=== PATIENT | female | born 1935 | race Caucasian/White ===

== ENCOUNTER 2022-03-23 08:07 | Outpatient (CLI) | payer MEDICARE, BC, SELFPAY | END 2022-03-23 08:08 | disposition home or self-care (01) | LOC: INJ CL 08:11 | PROVIDERS: PCP Family Medicine; Visit Provider Family Medicine | DX: M54.16 Radiculopathy, lumbar region (principal); M51.36 Other intervertebral disc degeneration, lumbar region | CPT/HCPCS: 64483; J1100; Q9966 ==

== ENCOUNTER 2022-05-07 09:03 | Outpatient (CLI) | payer MEDICARE, BC, SELFPAY ==
--- NOTE | 2022-05-07 09:15 | MR_ITS ---
[address] [address] Phone:?[phone] Fax:?[phone] Referring Physician Information: Christopher Garcia M.D. [address] [facility] [address] Phone:?[phone] Fax:?[phone] Patient:Shannon Khan D.O.B:?1935 Sex:?Female Phone:?[phone] [facility] MRN:?[id number] Exam Date:?05/07/2022 ? EXAM: MR LUMBAR SPINE WITHOUT CONTRAST 1.5T CLINICAL INFORMATION: Low back pain. Lumbar radiculopathy. No injury. TECHNICAL INFORMATION: T1, T2 and STIR sagittal sections through the lumbar spine with T1 coronal sections, T1 and T2 FSE stacked axial sections and T2 FSE angled axial sections through L5-S1. COMPARISON IMAGES: MRI dated 05/31/2021. INTERPRETATION:?Segmentation and Alignment: 5 lumbar type vertebrae with lumbar hyperlordosis and a mild upper lumbar curve to the left. Osseous structures: A subacute vertical stress fracture is seen within the left sacral ala with marrow edema seen on sagittal STIR image 17. A moderate 40% compression fracture is seen within the superior T12 vertebral body with a linear area of residual increased signal intensity adjacent to the compressed T12 endplate. An old marked 80% compression fracture is visualized at L5. No involvement of posterior elements. No osteolytic or destructive bone lesion. Sacrum and Sacroiliac joints:?Normal sacrum and sacroiliac joints. L5-S1: Mild disc degeneration with chronic bilateral L5 spondylolysis, a 4 mm spondylolisthesis, moderately severe right and severe left up-down foraminal stenosis and bilateral L5 neural impingement. L4-5: Spondylosis with mild left facet arthropathy and mild narrowing of the left neural foramen. L3-4: Moderate disc degeneration with a high signal intensity right lateral annular fissure and 3 mm right lateral disc protrusion. Normal facet joints. No stenosis or impingement. L2-3: Moderate disc degeneration with a high signal intensity dorsal annular fissure/bulge, normal facet joints and no stenosis or impingement. L1-2: Moderate to advanced disc degeneration with mild retrolisthesis, a high signal intensity dorsal annular fissure/bulge, normal facet joints and no stenosis or impingement. T12-L1 and T11-12: Mild spondylosis with facet arthropathy on the left at T11-12 and no stenosis or impingement. Conus: Normal signal intensity within the conus medullaris. No intradural mass or arachnoidal adhesions. Paraspinous soft tissues:?No paraspinous soft tissue mass or fluid collection. CONCLUSION: 1. Marked 80% compression fracture at L5, healed in the interval with resolution of marrow edema seen on the 05/31/2021 exam. 2. Moderate 40% compression fracture of the superior T12 vertebral body with residual increased signal intensity again noted and possibly discogenic in origin. 3. Vertical fracture of the left sacrum again noted with residual increased signal intensity on sagittal STIR imaging. 4. 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 5. L5-S1, L3-4, L2-3 and L1-2 disc degeneration again noted. Electronically signed on 05/08/2022 9:26:00 AM by Cal Jasmine M.D.
== END 2022-05-07 09:04 | disposition home or self-care (01) ==
LOC: MRI 09:06
PROVIDERS: PCP Family Medicine; Visit Provider Family Medicine
DX: M54.50 Low back pain, unspecified (principal); M54.16 Radiculopathy, lumbar region; M47.816 Spondylosis without myelopathy or radiculopathy, lumbar region; M48.062 Spinal stenosis, lumbar region with neurogenic claudication; M51.36 Other intervertebral disc degeneration, lumbar region; S76.0 Injury of muscle, fascia and tendon of hip; S32.10XA Unspecified fracture of sacrum, initial encounter for closed fracture
CPT/HCPCS: 72148

== ENCOUNTER 2022-10-17 12:47 | Emergency (ER) | payer MEDICARE, BC, SELFPAY ==
[2022-10-17 12:52] VITALS: BP 127/81; PULSE 84; RESP 16; TEMP 36.1; O2SAT 97; BMI 29.2
--- NOTE | 2022-10-17 13:17 | ED.GENADULT ---
HPI - General Adult General Time Seen by Provider: 13:17 Date Seen: 10/17/22 Chief complaint: Skin/Abscess/Foreign Body Stated complaint: reaction to IV from procedure this AM Time Seen by Provider: 10/17/22 12:53 Source: patient Mode of arrival: ambulatory Limitations: no limitations History of Present Illness HPI narrative: Patient is an 86-year-old female presenting to the emergency department for hematoma to her left hand. Patient states she was at [facility] earlier today for an ablation for nerves to her hip. They removed the IV about 10:30. Patient they went out to eat with her daughter and shortly prior to arrival noticed the hand where the IV was had a large and raised hematoma. She denies any pain at this time. She is able to move the hand without issues. She states this is never happened to her before so she want to get checked out to make sure everything is okay. Related Data Home Medications Medication Instructions Recorded Confirmed biotin 1 mg capsule 1 mg PO DAILY 10/17/22 10/17/22 gabapentin 300 mg capsule 300 mg PO QPM 10/17/22 10/17/22 levothyroxine 100 mcg tablet 100 mcg PO DAILY 10/17/22 10/17/22 magnesium 200 mg tablet 400 mg PO DAILY 10/17/22 10/17/22 metoprolol succinate 50 mg 50 mg PO DAILY 10/17/22 10/17/22 tablet,extended release 24 hr omeprazole 20 mg capsule,delayed 1 PO DAILY 10/17/22 release rivaroxaban 20 mg tablet (Xarelto) 20 mg PO QPM 10/17/22 10/17/22 tramadol 50 mg tablet 50 mg PO QID 10/17/22 10/17/22 Allergies Allergy/AdvReac Type Severity Reaction Status Date / Time amoxicillin Allergy Verified 10/17/22 12:57 benzonatate Allergy Verified 10/17/22 12:57 [From Anabella Dunlap] diphenhydramine Allergy Verified 10/17/22 12:57 Penicillins Allergy Verified 10/17/22 12:57 Review of Systems Status of ROS: Reports: 6 or more systems reviewed and unremarkable except as noted in History and below [facility] Medical History (Updated 10/17/22 @ 13:23 by Colby Velasquez, DO) Arthritis ?M19.90 - Unspecified osteoarthritis, unspecified site (ICD-10) Osteoporosis ?M81.0 - Age-related osteoporosis without current pathological fracture (ICD-10) Hypothyroid ?E03.9 - Hypothyroidism, unspecified (ICD-10) Atrial fibrillation ?I48.91 - Unspecified atrial fibrillation (ICD-10) Surgical History (Updated 10/17/22 @ 13:03 by Sumi Granger RN) History of radiofrequency ablation (RFA) of nerve of lumbar spine ?Z98.890 - Other specified postprocedural states (ICD-10) Social History Smoking Status: Never smoker How often do you have a drink containing alcohol: monthly or less AUDIT-C Alcohol total score: 1 Non-prescribed substance use: denies use Exam Narrative: Exam Narrative: Const: Well-nourished, Well-developed, in mild distress Eyes: PERRL, no conjunctival injection, and symmetrical lids ENMT: Atraumatic external nose and ears. Moist mucous membranes. MSK:Extremities w/o deformity, Normal Active ROM. Bruising noticed to the dorsal aspect of the left hand with a raised hematoma. Does not appear to be actively bleeding Skin: Warm, Dry. No rashes or lesions. Neuro: Normal Muscle tone, No focal neurological deficits. Psych: Awake, Alert, & Oriented x3. Appropriate mood and affect. Const: Vital Signs, click to edit/add: Vital Signs - 24 hr 10/17/22 12:52 Temperature 97.0 F L Pulse Rate [Right Pulse Oximeter] 84 Respiratory Rate 16 Blood Pressure [Ri ght Upper Arm] 127/81 Pulse Oximetry 97 Oxygen Delivery Me thod Room Air Course Vital Signs Vital signs: Initial Vital Signs Temperature 97.0 F L 10/17/22 12:52 Temperature Source Temporal Artery Scan 10/17/22 12:52 Pulse Rate 84 10/17/22 12:52 Respiratory Rate 16 10/17/22 12:52 Blood Pressure 127/81 10/17/22 12:52 Blood Pressure Mean 96 10/17/22 12:52 Blood Pressure Position Sitting 10/17/22 12:52 Pulse Oximetry 97 10/17/22 12:52 Oxygen Delivery Method Room Air 10/17/22 12:52 Vital Signs Temperature 97.0 F L 10/17/22 12:52 Pulse Rate 84 10/17/22 12:52 Respiratory Rate 16 10/17/22 12:52 Blood Pressure 127/81 10/17/22 12:52 Pulse Oximetry 97 10/17/22 12:52 Oxygen Delivery Method Room Air 10/17/22 12:52 Temperature 97.0 F L 10/17/22 12:52 Pulse Rate 84 10/17/22 12:52 Respiratory Rate 16 10/17/22 12:52 Blood Pressure 127/81 10/17/22 12:52 Pulse Oximetry 97 10/17/22 12:52 Oxygen Delivery Method Room Air 10/17/22 12:52 Medical Decision Making MDM Narrative Medical decision making narrative: Patient is an 86-year-old female presenting [facility] for hematoma to the dorsal aspect of her left hand. She had a procedure done this morning at [facility] and the IV was in her left hand. They removed the IV in everything was going well around 10:30. Shortly prior to arrival she noticed a large hematoma to the area where the IV was. She is having no pain and has full movement of her hands. Also denies any numbness. She is otherwise asymptomatic but was concerned because she has never had this happened to her before. She is on rivaroxaban. There is no active bleeding seen on my exam. On palpation of the hand there is no tenderness. This appears to be a hematoma that occurred with the IV was taken off and not enough pressure was placed. Since the IV was used successfully is unlikely to have been in an artery and causing a pseudoaneurysm She is otherwise doing well and will discharge her home. And Mick wrap was placed around the hand to keep pressure on the area. Patient and her daughter agreeable with this plan Discharge Plan Discharge Clinical Impression: Hematoma Patient Disposition: Home, Self-Care Condition: Stable Instructions: Hematoma (ED) Additional Instructions: Follow-up with the primary care provider in make sure the hematoma is improving. Keep the Mick wrap on for today out keep pressure on the area to make sure bleeding has stopped. He can remove it tomorrow. If swelling gets worse or hand becomes painful and difficult to move return to the emergency department. Prescriptions: No Action metoprolol succinate 50 mg tablet extended release 24 hr 50 mg PO DAILY tramadol 50 mg tablet 50 mg PO QID levothyroxine 100 mcg tablet 100 mcg PO DAILY gabapentin 300 mg capsule 300 mg PO QPM omeprazole 20 mg capsule,delayed release(DR/EC) 1 PO DAILY Xarelto 20 mg tablet 20 mg PO QPM magnesium 200 mg tablet 400 mg PO DAILY biotin 1 mg capsule 1 mg PO DAILY Follow Up/Referrals: Lashae Saeed MD [Primary Care Provider] - Stand Alone Forms: [employer] Info Instructions
== END 2022-10-17 13:38 | disposition home or self-care (01) ==
PROVIDERS: Emergency Provider Student in an Organized Health Care Education/Training Program; PCP Family Medicine
DX: S60.222A Contusion of left hand, initial encounter (principal)
CPT/HCPCS: 99282

== ENCOUNTER 2023-04-02 06:39 | Outpatient (CLI) | payer MEDICARE, BC, SELFPAY | END 2023-04-02 06:40 | disposition home or self-care (01) | LOC: INJ CL 06:41 | PROVIDERS: PCP Family Medicine; Visit Provider Family Medicine | DX: M54.16 Radiculopathy, lumbar region (principal); M51.36 Other intervertebral disc degeneration, lumbar region | CPT/HCPCS: 62323; J0702; Q9966 ==

== ENCOUNTER 2024-01-07 09:42 | Outpatient (CLI) | payer MEDICARE, BC, SELFPAY | END 2024-01-07 09:43 | disposition home or self-care (01) | LOC: INJ CL 09:44 | PROVIDERS: PCP Family Medicine; Visit Provider Family Medicine | DX: M54.16 Radiculopathy, lumbar region (principal); M51.369 Other intervertebral disc degeneration, lumbar region without mention of lumbar back pain or lower extremity pain | CPT/HCPCS: 62323; J0702; Q9966 ==

== ENCOUNTER 2024-10-30 11:35 | Outpatient (CLI) | payer MEDICARE, BC, SELFPAY ==
--- NOTE | 2024-10-30 12:44 | P.ANES_ITS ---
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
--- NOTE | 2024-10-30 12:44 | W.ANESCHARGE ---
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
== END 2024-10-30 11:36 | disposition home or self-care (01) ==
LOC: OP CLINIC 11:39
PROVIDERS: PCP Family Medicine; Visit Provider Internal Medicine Gastroenterology
DX: D50.9 Iron deficiency anemia, unspecified (principal); D13.1 Benign neoplasm of stomach; D49.0 Neoplasm of unspecified behavior of digestive system; K31.89 Other diseases of stomach and duodenum
CPT/HCPCS: 00731; 43239; 88305; 99100; J2704